=== PATIENT | male | born 1970 | race Caucasian/White ===

== ENCOUNTER 2017-04-14 13:09 | Emergency (ER) | payer OTHER ==
[~2017-04-14] VITALS: Ht 165.1 cm; Wt 68.2 kg
[2017-04-14 13:10] VITALS: BP 142/95; PULSE 92; RESP 14; O2SAT 99
--- NOTE | 2017-04-14 13:28 | ED.REPORT ---
HPI-General Illness Date of Service Apr 14, 2017 ED Provider: Juan Barlow MD Pt is a generally healthy 46 y/o male presenting to the ED c/o left-sided rib pain onset 2 weeks ago. The patient was walking across a log and slipped on some [place] and fell onto his left chest. He has been experiencing pain since the incident. He c/o associated pleuritic pain. Pt denies abdominal pain, fever, chills, cough, SOB. Nursing Notes Stated Complaint: RIB PAIN Chief Complaint: Male Abdominal Pain Nursing Notes Reviewed: Yes Allergies: Coded Allergies: No Known Allergies (Unverified , 04/14/17) Scheduled PRN Ibuprofen (Ibuprofen) 800 Mg Tablet 800 MG PO TID PRN PRN For Pain General Time Seen by MD: 13:18 Chief Complaint Other (rib pain) Hx Obtained From: Patient Arrived By: Walk-in Sudden in Onset?: Yes Onset Occurred: More than a week ago... (2 weeks) Symptom Duration: Since onset Location: : Chest Quality: Painful, Pleuritic Severity: Current: Moderate Severity: Maximum: Moderate Past Medical History Past Medical History None reported Past Surgical History None reported Smoking History Unknown if Ever Smoker Ambulatory Status Independent Review of Systems Full Review of Systems Constitutional: Denies: Chills, Fever Respiratory: Reports: Pleuritic pain, Denies: Non-productive cough, Shortness of breath Cardiovascular: Reports: Chest pain, Denies: Edema GI: Denies: Abdominal pain, Nausea, Vomiting Complete sys rev & neg: except as marked. Physical Exam Vital Signs Vital Signs Date Time Temp Pulse Resp B/P Pulse Ox O2 Delivery O2 Flow Rate FiO2 04/14/17 14:21 36.3 90 131/84 95 Room Air 04/14/17 13:10 36.9 92 14 142/95 99 Room Air Initial VS: Reviewed, Vital signs normal Head / Eyes: Atraumatic, Normocephalic, PERRL ENT: Mucous membranes moist, Conjunctiva normal, No scleral icterus Neck: Supple, Non-tender, Full range of motion Cardiovascular: Regular rate & rhythm, Heart sounds normal, Intact distal pulses Abdomen / GI: Soft, No distention Extremities: Vascular intact, Neuro intact, No swelling Skin: Warm, Dry, No cyanosis Neurologic: Alert, Oriented, Nonfocal Psychiatric: Mood/affect normal, Behavior normal, Normal thought content General/Constitutional: Awake, Alert, No acute distress, Well appearing, Cooperative, Not toxic appearing Respiratory / Chest: Breath sounds NL, Breath sounds = bilat, No respiratory distress, No rales, No rhonchi, No wheezing, No retractions, No stridor Left anterior chest tenderness Interpretation & Diagnostics X-Ray Chest Interpretation Chest Xray Interpretation: With ribs IMPRESSION: No acute trauma found. Dictated by: Donnie Sawyer M.D. on 04/14/2017 at 13:43 Approved by: Donnie Sawyer M.D. on 04/14/2017 at 13:44 View: Portable, AP & lat Interpretation / Wet Read by: Interpret - Radiologist Re-Eval/Medical Decision Med Decision/Clinical Course 46-year-old male presenting complaining of left rib pain 2 weeks after fall. He is here to see if he broke his rib. Denies fevers, shortness breath, chest pain, any other symptoms. His x-rays clear and there is no evidence of rib fracture. Is discharged home with plans to take ibuprofen for possible chest wall contusion. Return precautions given. Time of Eval: 13:55 Re-Evaluation/Progress Note: Pt rechecked. Informed pt of plan for treatment. Pt understands and agrees with plan for treatment. F/U instructions and RTER warnings given. All questions addressed. Counseled Regarding: Diagnosis, Need for follow-up, When/why to return to ED Discharge & Departure Primary Impression: Contusion of left chest wall Encounter type: initial encounter Qualified Code: S20.212A - Contusion of left front wall of thorax, initial encounter Disposition: Home Discharge Condition All VS Reviewed: Yes Condition: Stable Patient Instructions: Chest Wall Pain (ED) Additional Instructions: The x-ray showed no sign of fracture. You like have a chest muscle contusion. Alternate Tylenol and Ibuprofen as needed for pain. Return to the emergency department for any new or worsening symptoms. Follow-up with a primary care doctor within the week if symptoms do not improve. [facility] can see you if you don't have a doctor. Referrals: [facility] Scribe Attestation Portions of this note were transcribed by Carlitos Barrientos. I, Dr. Barlow, personally performed the history, physical exam and medical decision-making; I reviewed and confirmed the accuracy of the information in the transcribed note. Signed by Rachid Castro, 04/14/17 - 1345 Juan Barlow MD Apr 14, 2017 13:28 CARLITOS BARRIENTOS Apr 14, 2017 13:42
--- NOTE | 2017-04-14 13:46 | DRSVH ---
PROCEDURE: X-RAY LEFT RIBS INCLUDEING PA CHEST, MINUMUM THREE VIEWS ([id number]) INDICATIONS: Injury to left chest TECHNIQUE: 3 views of the left ribs left were acquired, along with a single view chest. COMPARISON: None. FINDINGS: Surgical changes and devices: None. Bones and chest wall: No fractures or dislocations. No suspicious bony lesions. Overlying soft tis sues appear unremarkable. Lungs and pleura: No pleural effusions or pneumothorax. Lungs appear clear. Mediastinum: Mediastinal contours appear normal. Heart size is normal. IMPRESSION: No acute trauma found. Dictated by: Donnie Sawyer M.D. on 04/14/2017 at 13:43 Approved by: Donnie Sawyer M.D. on 04/14/2017 at 13:44
[2017-04-14] MEDS ORDERED: IBUP800T28 PO (14:11)
[2017-04-14 14:21] VITALS: BP 131/84; PULSE 90; O2SAT 95
== END 2017-04-14 14:22 | disposition home or self-care (01) ==
LOC: SED 13:09
DX: S20.212A Contusion of left front wall of thorax, initial encounter (principal); W01.198A Fall on same level from slipping, tripping and stumbling with subsequent striking against other object, initial encounter; Y93.01 Activity, walking, marching and hiking; Y92.89 Other specified places as the place of occurrence of the external cause; Y99.8 Other external cause status